=== PATIENT | female | born 1945 | race Caucasian/White ===

== ENCOUNTER 2019-02-07 11:42 | Inpatient (IN) | payer OTHER ==
[~2019-02-07] VITALS: Ht 154.9 cm; Wt 48.1 kg
--- NOTE | 2019-02-07 11:55 | NUR ---
patient presented to the ER from home, c/o nausea and vomiting x 5 days. On rom air, breathing evenly and unlabored. Connected to the monitor and pulse ox. Kept comfortable, will continue to monitor accordingly.
[2019-02-07] MEDS ORDERED: MAG HYDROX/AL HYDROX/SIMETH 30 ML UDC PO ONE (12:30)
[2019-02-07] MEDS ORDERED: ONDANSETRON HCL/PF 4 MG/2 ML VIAL IVP ONE (12:30)
[2019-02-07] MEDS ORDERED: IV NS 0.9% 1,000 ML BAG IV ONE (12:30)
[2019-02-07] MEDS ORDERED: HYDROMORPHONE INJ 0.5 MG/0.5 ML SYRINGE IV ONE (12:30)
[2019-02-07 12:34] LABS: BASOPHILS # (AUTO) 0.2 /CMM (0.0-0.2); BASOPHILS % (AUTO) 0.7 % (0.0-2.0); EOSINOPHILS % (AUTO) 1.9 % (0.0-6.0); HEMATOCRIT 45 % (33-45); HEMOGLOBIN 14.3 g/dL (11.5-14.8); LYMPHOCYTES # (AUTO) 2.9 /CMM (0.8-4.8); LYMPHOCYTES % (AUTO) 9.4 % (20.0-44.0); MEAN CORPUSCULAR HGB CONC 32 g/dl (31.0-36.0); MEAN CORPUSCULAR VOLUME 83 fL (82-100); MONOCYTES # (AUTO) 1.8 /CMM (0.1-1.30); MONOCYTES % (AUTO) 5.9 % (2.0-12.0); NEUTROPHILS # (AUTO) 25.6 /CMM (1.8-8.9); NEUTROPHILS % (AUTO) 82.1 % (43.0-81.0); PLATELET COUNT (AUTO) 191 /CMM (150-450); RED BLOOD CELL COUNT(AUTO) 5.44 MIL/uL (4.0-5.2)
[2019-02-07 12:35] LABS: WHITE BLOOD COUNT (AUTO) 31.2 K/uL (4.3-11.0)
[2019-02-07] MEDS ORDERED: HYDROMORPHONE 1 MG/1 ML DISP.SYRIN ONE (12:40)
[2019-02-07] MEDS ORDERED: MAG HYDROX/AL HYDROX/SIMETH 30 ML UDC ONE (12:40)
[2019-02-07] MEDS ORDERED: ONDANSETRON HCL/PF 4 MG/2 ML VIAL ONE (12:40)
[2019-02-07 12:49] LABS: CALCIUM, SERUM 9.3 mg/dL (8.5-10.1); CARBON DIOXIDE 26 mmol/L (21-32); CHLORIDE 99 mmol/L (98-107); CREATININE 1.9 mg/dL (0.6-1.3); GLUCOSE 133 mg/dL (74-106); SODIUM SERUM 137 mmol/L (136-145); UREA NITROGEN, BLOOD 49 mg/dL (7-18)
[2019-02-07 12:53] LABS: ALANINE AMINOTRANSFERASE 82 U/L (12-78); ALBUMIN 2.5 g/dL (3.4-5.0); ALKALINE PHOSPHATASE 852 U/L (46-116); ASPARTATE AMINOTRANSFERASE 90 U/L (15-37); BILIRUBIN,TOTAL 1.8 mg/dL (0.2-1.0); LIPASE 61 U/L (73-393); TOTAL PROTEIN, SERUM 6.7 g/dL (6.4-8.2)
[2019-02-07 13:08] LABS: BAND % (MANUAL) 4 % (0.0-5.0); EOSINOPHILS % (MANUAL) 1 % (0-4); LYMPHOCYTES % (MANUAL) 6 % (16-48); MONOCYTES % (MANUAL) 5 % (0-11.0); NEUTROPHILS % (MANUAL) 84 (42-76)
[2019-02-07] MEDS ORDERED: ASPIRIN 81 MG TAB.CHEW ONE (13:21)
[2019-02-07] MEDS ORDERED: ASPIRIN 81 MG TAB.CHEW PO ONE (13:30)
[2019-02-07] MEDS ORDERED: CEFTRIAXONE 1GM BAG (ER ONLY) 50 ML IV ONE (13:56)
[2019-02-07] MEDS ORDERED: CEFTRIAXONE 1 G in IV D5W 50 ML IV ONE (14:00)
--- NOTE | 2019-02-07 14:16 | NUR ---
urine collected and sent to lab.
[2019-02-07 14:20] LABS: APPEARANCE,URINE Slightly Cloudy (CLEAR); BILIRUBIN,URINE LARGE (NEGATIVE); BLOOD, URINE Negative Ery/uL (NEGATIVE); COLOR,URINE Amber (YELLOW); KETONES,URINE Trace (NEGATIVE); LEUKOCYTE ESTERASE ,URINE Negative (NEGATIVE); NITRITE, URINE Negative (NEGATIVE); PROTEIN,URINE 100 mg/dl (NEGATIVE); UGLUCOSE 100 MG/DL mg/dL (NEGATIVE); UROBILINOGEN,URINE >=8.0 EU/dL (0.2)
[2019-02-07 14:23] LABS: BACTERIA,URINE 1+ /HPF (None Seen); HYALINE CASTS, URINE Many /LPF (None Seen); MUCUS,URINE Moderate /LPF (None Seen); RBC,URINE NONE SEEN /HPF (0-2); SQUAMOUS EPITHELIAL CELL,UR Moderate /HPF (None Seen); WBC,URINE NONE SEEN /HPF (0-3)
--- NOTE | 2019-02-07 14:52 | NUR ---
TELE [id number]
[2019-02-07] MEDS ORDERED: ONDA4TAB5 PO (14:54)
[2019-02-07] MEDS ORDERED: DEXL60CA3 PO (14:54)
[2019-02-07] MEDS ORDERED: LISI-603 PO (14:54)
[2019-02-07] MEDS ORDERED: CARV6.25 PO (14:54)
--- NOTE | 2019-02-07 15:39 | NUR ---
report given to Anahi MCKEON for [facility].
--- NOTE | 2019-02-07 16:10 | NUR ---
transferred via gurney accompanied by RN and emt in no apparent distress noted.
[2019-02-07] MEDS ORDERED: ZOLPIDEM TARTRATE 5 MG TABLET PO PRN (17:30)
[2019-02-07] MEDS: PANTOPRAZOLE 40 MG VIAL IV SCH (18:09)
[2019-02-07] MEDS: IV 1/2NS 1000 ML 1,000 ML IV PRN (18:19)
[2019-02-07] MEDS: HYDROMORPHONE 1 MG/1 ML DISP.SYRIN IV PRN (18:22)
[2019-02-07] MEDS: ONDANSETRON HCL/PF 4 MG/2 ML VIAL IV PRN (19:18)
--- NOTE | 2019-02-07 19:30 | NUR ---
RN NOTES PT ARRIVED ON TO THE UNIT VIA GURNEY. ALL PATIENT BELONGINGS ACCOUNTED FOR DOCUMENTED. PT EDUCATED ON THE USE OF THE CALL LIGHT. ADVANCE DIRECTIVE GIVEN AT TIME OF ADMISSION. PT TELE MONITORED. PT GIVEN DILAUDID FOR PAIN MANAGEMENT, AND ZOFRAN FOR V/N. REPORT GIVEN TO RVI FOR CONTINUITY OF CARE.
[2019-02-07 20:00] VITALS: BP 119/60
[2019-02-07] MEDS: CARVEDILOL 6.25 MG TABLET PO SCH (20:56)
[2019-02-07] MEDS ORDERED: PROCHLORPERAZINE MALEATE 10 MG TABLET PO PRN (22:30)
[2019-02-08] VITALS: BP 96/57
[2019-02-08 04:00] VITALS: BP 120/59
[2019-02-08] MEDS: IV 1/2NS 1000 ML 1,000 ML IV PRN ×2 (06:02→18:50)
--- NOTE | 2019-02-08 06:05 | NUR ---
PATIENT ASLEEP, EASILY AROUSABLE. RESPIRATIONS EVEN. NO SIGNS OF PAIN NOTED. DUE MED GIVEN WITH NO ASE NOTED. IVF INFUSING ORDERED. NEEDS ATTENDED. SAFETY PRECAUTIONS AND COMFORT MEASURES IN PLACE. WILL GIVE REPORT TO DAY SHIFT FOR CONTINUITY OF CARE.
[2019-02-08 06:28] LABS: BASOPHILS # (AUTO) 0.2 /CMM (0.0-0.2); BASOPHILS % (AUTO) 0.8 % (0.0-2.0); EOSINOPHILS % (AUTO) 0.9 % (0.0-6.0); HEMATOCRIT 41 % (33-45); HEMOGLOBIN 13.1 g/dL (11.5-14.8); LYMPHOCYTES # (AUTO) 1.7 /CMM (0.8-4.8); LYMPHOCYTES % (AUTO) 6.5 % (20.0-44.0); MEAN CORPUSCULAR HGB CONC 32 g/dl (31.0-36.0); MEAN CORPUSCULAR VOLUME 83 fL (82-100); MONOCYTES # (AUTO) 0.9 /CMM (0.1-1.30); MONOCYTES % (AUTO) 3.3 % (2.0-12.0); NEUTROPHILS # (AUTO) 23.7 /CMM (1.8-8.9); NEUTROPHILS % (AUTO) 88.5 % (43.0-81.0); PLATELET COUNT (AUTO) 124 /CMM (150-450); RED BLOOD CELL COUNT(AUTO) 4.92 MIL/uL (4.0-5.2); WHITE BLOOD COUNT (AUTO) 26.7 K/uL (4.3-11.0)
[2019-02-08] MEDS: ONDANSETRON HCL/PF 4 MG/2 ML VIAL IV PRN ×3 (06:43→19:52)
[2019-02-08 06:50] LABS: ALANINE AMINOTRANSFERASE 73 U/L (12-78); ALKALINE PHOSPHATASE 746 U/L (46-116); ASPARTATE AMINOTRANSFERASE 79 U/L (15-37); BILIRUBIN,TOTAL 1.6 mg/dL (0.2-1.0); CALCIUM, SERUM 7.9 mg/dL (8.5-10.1); CARBON DIOXIDE 20 mmol/L (21-32); CHLORIDE 105 mmol/L (98-107); GLUCOSE 112 mg/dL (74-106); POTASSIUM 4.4 mmol/L (3.5-5.1); SODIUM SERUM 138 mmol/L (136-145); TOTAL PROTEIN, SERUM 5.5 g/dL (6.4-8.2); UREA NITROGEN, BLOOD 58 mg/dL (7-18)
[2019-02-08 06:55] LABS: CHOLESTEROL 220 mg/dL (<200); HDL CHOLESTEROL 19 mg/dL (40-60); TRIGLYCERIDES 180 mg/dL (30-150)
--- NOTE | 2019-02-08 07:06 | NUR ---
LIME MIXER NOTES PATIENT IN BED ALERT ORIENTED X 4. NO ACUTE DISTRESS NOTED, BREATHING UNLABORED. NO SOB NOTED. IV ACCESS PATENT AND INTACT. HOB ELEVATED. SAFETY MEASURES IN PLACE. CALL LIGHT WITHIN REACH. WILL CONTINUE TO MONITOR ACCORDINGLY.
[2019-02-08 07:29] LABS: LDL 147 mg/dL (0-99)
[2019-02-08 08:00] VITALS: BP 105/65
--- NOTE | 2019-02-08 08:29 | NUR ---
LAYOUT OPERATOR NOTES SEEN AND EVALUATED BY DR CITLALLI HOWELL, MADE AWARE OF LABORATORY TEST RESULTS FROM TODAY INCLUDING TROPONIN LEVEL, WITH NEW ORDERS MADE. NOTED AND CARRIED OUT.
[2019-02-08] MEDS: CARVEDILOL 6.25 MG TABLET PO SCH ×2 (09:00→21:28)
[2019-02-08 12:00] VITALS: BP 96/64
--- NOTE | 2019-02-08 12:00 | NUR ---
INSPECTOR CHIEF NOTES PATIENT REFUSED CT ABDOMEN DESPITE OF EXPLANATION OF RISK AND BENEFITS, DR LENNON MADE AWARE.
[2019-02-08] MEDS: HYDROMORPHONE 1 MG/1 ML DISP.SYRIN IV PRN ×3 (14:01→19:48)
[2019-02-08] MEDS: CEFTRIAXONE 1 G in IV D5W 50 ML IV SCH (14:05)
[2019-02-08 16:00] VITALS: BP 89/59
[2019-02-08] MEDS: PANTOPRAZOLE 40 MG VIAL IV SCH (17:20)
--- NOTE | 2019-02-08 19:00 | NUR ---
MS RN NOTES PATIENT IN BED ALERT ORIENTED X 4. NO ACUTE DISTRESS NOTED, BREATHING UNLABORED. NO SOB NOTED. IV ACCESS PATENT AND INTACT. HOB ELEVATED.DUE MEDICATIONS GIVEN, NO ASE NOTED. NEEDS ATTENDED AND ANTICIPATED. KEPT CLEAN DRY AND COMFORTABLE. SAFETY MEASURES IN PLACE. CALL LIGHT WITHIN REACH. ENDORSED TO NIGHT NURSE FOR CONTINUITY OF CARE.
--- NOTE | 2019-02-08 19:30 | NUR ---
RECEIVED PATIENT IN BED AWAKE. AO X 3, ABLE TO MAKE NEEDS KNOWN. NO ACUTE DISTRESS NOTED. MONITORED FOR PAIN. IV SITE PATENT, INTACT; IVF INFUSING ORDERED. SAFETY REMINDERS GIVEN. ON LOW BED WITH BILATERAL UPPER SIDE RAILS UP. CALL FORD WITHIN EASY REACH. WILL CONTINUE TO MONITOR. FAMILY AT BEDSIDE.
[2019-02-08 20:00] VITALS: BP 101/67
--- NOTE | 2019-02-08 20:00 | NUR ---
DR. LENNON MADE AWARE THAT PATIENT HAS BEEN ON FENTANYL PATCH 25 MCG TD X 72 HOURS AT HOME. FAMILY IS ASKING TO HAVE FENTANYL PATCH CONTINUED IN HOSPITAL. DR. LENNON ORDERED ABOVE MED AND SAID TO STILL CONTINUE CURRENT ORDER OF DILAUDID 0.5 MG IVP. PATIENT AND FAMILY MADE AWARE.
[2019-02-08] MEDS ORDERED: FENTANYL TD PATCH (25 MCG/HR) 25 MCG/HR PATCH.TD72 TD SCH (21:00)
[2019-02-09] VITALS: BP 105/64
[2019-02-09 04:00] VITALS: BP 108/58
[2019-02-09] MEDS: IV 1/2NS 1000 ML 1,000 ML IV PRN (04:55)
[2019-02-09] MEDS: HYDROMORPHONE 1 MG/1 ML DISP.SYRIN IV PRN (05:25)
[2019-02-09] MEDS: ONDANSETRON HCL/PF 4 MG/2 ML VIAL IV PRN ×2 (05:25→13:12)
[2019-02-09 06:02] LABS: BASOPHILS # (AUTO) 0.1 /CMM (0.0-0.2); BASOPHILS % (AUTO) 0.5 % (0.0-2.0); EOSINOPHILS % (AUTO) 1.9 % (0.0-6.0); HEMATOCRIT 43 % (33-45); HEMOGLOBIN 13.5 g/dL (11.5-14.8); LYMPHOCYTES # (AUTO) 2.8 /CMM (0.8-4.8); LYMPHOCYTES % (AUTO) 9.5 % (20.0-44.0); MEAN CORPUSCULAR HGB CONC 32 g/dl (31.0-36.0); MEAN CORPUSCULAR VOLUME 83 fL (82-100); MONOCYTES # (AUTO) 1.1 /CMM (0.1-1.30); MONOCYTES % (AUTO) 3.5 % (2.0-12.0); NEUTROPHILS # (AUTO) 25.3 /CMM (1.8-8.9); NEUTROPHILS % (AUTO) 84.6 % (43.0-81.0); PLATELET COUNT (AUTO) 121 /CMM (150-450); RED BLOOD CELL COUNT(AUTO) 5.16 MIL/uL (4.0-5.2); WHITE BLOOD COUNT (AUTO) 29.9 K/uL (4.3-11.0)
[2019-02-09 06:21] LABS: ALANINE AMINOTRANSFERASE 67 U/L (12-78); ALKALINE PHOSPHATASE 676 U/L (46-116); ASPARTATE AMINOTRANSFERASE 75 U/L (15-37); BILIRUBIN,TOTAL 1.3 mg/dL (0.2-1.0); CALCIUM, SERUM 7.9 mg/dL (8.5-10.1); CARBON DIOXIDE 19 mmol/L (21-32); CHLORIDE 100 mmol/L (98-107); CREATININE 2.6 mg/dL (0.6-1.3); GLUCOSE 109 mg/dL (74-106); POTASSIUM 4.6 mmol/L (3.5-5.1); SODIUM SERUM 133 mmol/L (136-145); TOTAL PROTEIN, SERUM 5.5 g/dL (6.4-8.2); UREA NITROGEN, BLOOD 73 mg/dL (7-18)
--- NOTE | 2019-02-09 07:03 | NUR ---
MS RN NOTES PATIENT IN BED ALERT ORIENTED X 4. NO ACUTE DISTRESS NOTED, BREATHING UNLABORED. NO SOB NOTED. DENIED ANY PAIN AT THIS TIME. IV ACCESS PATENT AND INTACT. HOB ELEVATED. SAFETY MEASURES IN PLACE. CALL LIGHT WITHIN REACH. WILL CONTINUE TO MONITOR ACCORDINGLY.
[2019-02-09 07:32] LABS: BAND % (MANUAL) 10 % (0.0-5.0); EOSINOPHILS % (MANUAL) 3 % (0-4); LYMPHOCYTES % (MANUAL) 5 % (16-48); METAMYELOCYTES % 1 % (0-0); MONOCYTES % (MANUAL) 4 % (0-11.0); NEUTROPHILS % (MANUAL) 77 (42-76)
[2019-02-09 08:00] VITALS: BP 96/60
--- NOTE | 2019-02-09 08:58 | NUR ---
MS RN NOTES SEEN AND EVALUATED BY DR DR LENNON, CLARIFIED ORDERS FOR CT ABDOMEN WITH ORDERS MAY DISCONTINUE CT ABDOMEN, NOTED AND CARRIED OUT.
[2019-02-09] MEDS: CARVEDILOL 6.25 MG TABLET PO SCH (09:00)
[2019-02-09] MEDS: CEFTRIAXONE 1 G in IV D5W 50 ML IV SCH (13:28)
--- NOTE | 2019-02-09 15:50 | NUR ---
MS HYDRAULIC PRESS TENDER NOTES PATIENT DISCHARGE HOME WITH STABLE VITAL SIGNS. ALERT ORIENTED X 4. NO ACUTE DISTRESS NOTED, BREATHING UNLABORED. NO SOB NOTED. DENIED ANY PAIN AT THIS TIME. DISCHARGE INSTRUCTIONS GIVEN TO THE PATIENT, VERBALIZED UNDERSTANDING. ALL BELONGINGS ACCOUNTED FOR. PATIENT REFUSED TO BE CHANGED AND PHOTO TAKEN DESPITE OF EXPLANATION OF RISK AND BENEFITS. IV ACCESS REMOVED, NO BLEEDING OR SWELLING NOTED. PICKED UP VIA AMBULANCE IN A GURNEY ACCOMPANIED BY 2 EMT PERSONNEL AND FAMILY IN STABLE CONDITION.
[2019-02-10] MEDS ORDERED: PANTOPRAZOLE 40 MG TABLET.DR PO SCH (07:30)
== END 2019-02-09 16:21 | disposition hospice, home (50) | DRG 683 ==
LOC: ER 11:42 → TELE 15:28 → MED 02-09 08:40
PROVIDERS: ADMIT Internal Medicine; ATTEND Internal Medicine
DX: N17.9 Acute kidney failure, unspecified (principal); C25.9 Malignant neoplasm of pancreas, unspecified; C78.7 Secondary malignant neoplasm of liver and intrahepatic bile duct; E86.0 Dehydration; I10 Essential (primary) hypertension; D72.829 Elevated white blood cell count, unspecified; Z51.5 Encounter for palliative care; Z79.899 Other long term (current) drug therapy
CPT/HCPCS: 36415; 71045-TC; 80048-TC; 80053-TC; 80061-TC; 80076-TC; 81000-TC; 83690-TC; 84443-TC; 84484-TC; 85025-TC; 85730-TC; 87081-TC; 87086-TC; 93307-TC; C9113; G0378; J0696; J1170; J2405; J3490; J7030; J7060; Q0164